=== PATIENT | male | born 1975 | race Two or more races ===

== ENCOUNTER 2021-09-28 13:29 | Emergency (ER) | payer BC ==
[~2021-09-28] VITALS: Ht 175.3 cm; Wt 83.9 kg
[2021-09-28] MEDS ORDERED: ESCITALOPRAM OX20 MG PO (13:55)
== END 2021-09-28 19:42 | disposition home or self-care (01) ==
LOC: ER 13:29
DX: S00.83XA Contusion of other part of head, initial encounter (principal); W21.12XA Struck by tennis racquet, initial encounter; Y93.69 Activity, other involving other sports and athletics played as a team or group; Y92.832 Beach as the place of occurrence of the external cause; F41.9 Anxiety disorder, unspecified